=== PATIENT | female | born 1985 | race African-American/Black ===

== ENCOUNTER 2017-10-02 10:48 | Emergency (ER) | payer SELFPAY | END 2017-10-02 12:40 | disposition home or self-care (01) | LOC: ERS 10:48 | DX: L02.01 Cutaneous abscess of face (principal); L02.811 Cutaneous abscess of head [any part, except face] | CPT/HCPCS: 99283 ==

== ENCOUNTER 2018-06-08 21:25 | Emergency (ER) | payer SELFPAY | END 2018-06-08 22:47 | disposition home or self-care (01) | LOC: ERS 21:25 | DX: S16.1XXA Strain of muscle, fascia and tendon at neck level, initial encounter (principal); V49.9XXA Car occupant (driver) (passenger) injured in unspecified traffic accident, initial encounter | CPT/HCPCS: 99283 ==

== ENCOUNTER 2021-04-01 13:38 | Emergency (ER) | payer OTHER, SELFPAY ==
[2021-04-01] MEDS ORDERED: Acetaminophen 500 MG TAB ONE (17:10)
== END 2021-04-01 17:13 | disposition home or self-care (01) ==
LOC: ERS 13:38
DX: M25.461 Effusion, right knee (principal)

== ENCOUNTER 2022-03-30 11:01 | Emergency (ER) | payer BC, SELFPAY ==
[2022-03-30 12:52] LABS: Pregnancy Test - Urine (BHCG) Negative (Negative); Pregu Control Background? CLEAR/WHITE (CLR/WHITE); Pregu Control Bar Appear? YES (CONTROL BAR); Specific Gravity 1.025 (1.002-1.036)
[2022-03-30] MEDS ORDERED: Dexameth. Sod Phosp. 10 MG/ML (CHEMO USE ONLY) ONE (12:59)
[2022-03-30] MEDS ORDERED: Ketorolac Tromethamine 30 MG/ML VIAL ONE (12:59)
== END 2022-03-30 13:22 | disposition home or self-care (01) ==
LOC: ERS 11:01
DX: S66.911A Strain of unspecified muscle, fascia and tendon at wrist and hand level, right hand, initial encounter (principal); G56.21 Lesion of ulnar nerve, right upper limb; X50.9XXA Other and unspecified overexertion or strenuous movements or postures, initial encounter; D64.9 Anemia, unspecified; M19.90 Unspecified osteoarthritis, unspecified site
CPT/HCPCS: 81025; 96372; 99283; J1100; J1885

== ENCOUNTER 2022-04-16 08:32 | Emergency (ER) | payer SELFPAY | END 2022-04-16 09:20 | disposition home or self-care (01) | LOC: ERS 08:32 | DX: U07.1 COVID-19 (principal); D64.9 Anemia, unspecified; M19.90 Unspecified osteoarthritis, unspecified site; F17.210 Nicotine dependence, cigarettes, uncomplicated | CPT/HCPCS: 99283; U0003; U0005 ==

== ENCOUNTER 2022-10-13 16:40 | Emergency (ER) | payer BC, SELFPAY ==
[2022-10-13] MEDS ORDERED: Dexameth. Sod Phosp. 10 MG/ML (CHEMO USE ONLY) ONE (19:26)
== END 2022-10-13 19:28 | disposition home or self-care (01) ==
LOC: ERS 16:40
DX: J06.9 Acute upper respiratory infection, unspecified (principal); F17.290 Nicotine dependence, other tobacco product, uncomplicated
CPT/HCPCS: 99283; J1100

== ENCOUNTER 2023-01-02 16:50 | Emergency (ER) | payer SELFPAY ==
[2023-01-02] MEDS ORDERED: Ketorolac Tromethamine 30 MG/ML VIAL ONE (18:47)
== END 2023-01-02 19:17 | disposition home or self-care (01) ==
LOC: ERS 16:50
DX: G56.01 Carpal tunnel syndrome, right upper limb (principal); Z87.891 Personal history of nicotine dependence
CPT/HCPCS: 96372; 99283; J1885

== ENCOUNTER 2023-10-07 04:38 | Emergency (ER) | payer MEDICAID, OTHER, SELFPAY | END 2023-10-07 06:22 | disposition home or self-care (01) | LOC: ERS 04:38 | DX: M79.645 Pain in left finger(s) (principal); M79.644 Pain in right finger(s); X50.1XXA Overexertion from prolonged static or awkward postures, initial encounter; Y93.F2 Activity, caregiving, lifting; Y99.0 Civilian activity done for income or pay; Z87.891 Personal history of nicotine dependence | CPT/HCPCS: 99283 ==

== ENCOUNTER 2023-11-09 10:20 | Emergency (ER) | payer OTHER, SELFPAY ==
[2023-11-09] MEDS ORDERED: Ibuprofen 800 MG TAB ONE (11:20)
[2023-11-09] MEDS ORDERED: Oxymetazoline HCl 0.05% (30 ML BOT) ONE (11:24)
[2023-11-09 12:26] LABS: SARS-CoV-2 NAA Rapid Test Not Detected (NotDetected)
== END 2023-11-09 11:50 | disposition home or self-care (01) ==
LOC: ERS 10:20
DX: B34.9 Viral infection, unspecified (principal); J01.90 Acute sinusitis, unspecified; F12.10 Cannabis abuse, uncomplicated; G56.00 Carpal tunnel syndrome, unspecified upper limb
CPT/HCPCS: 99284